=== PATIENT | female | born 1960 | race Caucasian/White ===

== ENCOUNTER 2018-04-18 07:42 | Day surgery (SDC) | payer OTHER ==
[2018-04-18 08:23] VITALS: BMI 36.6
[2018-04-18] MEDS ORDERED: Lactated Ringer's 1,000 ML IV ONE ×2 (10:25→11:00)
[2018-04-18] MEDS ORDERED: Propofol 10 mg/ml Inj (20 ML) ONE (11:01)
[2018-04-18] MEDS ORDERED: Lidocaine Hydrochloride 10 ML INJ ONE (11:02)
[2018-04-18] MEDS ORDERED: Albuterol HFA 90 mcg/actuation (8 g) ONE (11:02)
--- NOTE | 2018-04-18 11:04 | CP.SDSHP ---
Same Day Surgery H & P - History Proposed Procedure: EGD Pre-Op Diagnosis: SEE NOTES - Previous Medical/Surgical History Cardiac: Hypertension Pulmonary: Asthma Endocrine/Metabolic: Diabetes Misc: Other Pain: 4.Moderate Pain - Allergies Allergies: Allergies No Known Allergies Allergy (Verified 04/18/18 08:23) - Physical Exam General Appearance: N Vital Signs: Vital Signs 04/18/18 08:32 Temperature 97 F L Pulse Rate 76 Respiratory 18 Rate Blood Pressure 121/68 O2 Sat by Pulse 98 Oximetry Mental Status: Alert & Oriented x3 Neuro: WNL Heart: Other Lungs: Other GI: Other - {Optional Preform as Required} Breast: WNL Abdomen: Other Rectal: Other Integument: WNL : WNL Ortho: Other ENT: WNL - Impression Pt. Evaluated Today:Candidate for Anesthesia & Procedure: Yes - Date & Time Time: 11:03 Short Stay Discharge - Short Stay Discharge Admitting Diagnosis/Reason for Visit: MELENA Disposition: HOME/ ROUTINE
[2018-04-18] MEDS ORDERED: Belladonna-Phenobarbital PO ONE (11:30)
[2018-04-18] MEDS ORDERED: Lactated Ringer's 500 ML IV SCH (11:30)
[2018-04-18] MEDS ORDERED: Sucralfate 1 gm/10 ml Oral Susp UD PO ONE (11:40)
[2018-04-18 11:46] VITALS: TEMP 96.9
[2018-04-18 12:01] VITALS: PULSE 69
[2018-04-18 12:33] VITALS: BP 117/66; RESP 18; O2SAT 97
== END 2018-04-18 12:27 | disposition home or self-care (01) ==
LOC: C.ENDO 07:42
PROVIDERS: ATTEND Specialist
DX: K26.9 Duodenal ulcer, unspecified as acute or chronic, without hemorrhage or perforation (principal); K44.9 Diaphragmatic hernia without obstruction or gangrene; K29.70 Gastritis, unspecified, without bleeding; E11.9 Type 2 diabetes mellitus without complications; I10 Essential (primary) hypertension; J45.909 Unspecified asthma, uncomplicated
CPT/HCPCS: 43239; 82948; 88305; J2704; J7120

== ENCOUNTER 2018-04-20 08:43 | Day surgery (SDC) | payer OTHER ==
--- NOTE | 2018-04-20 11:02 | CP.SDSHP ---
Same Day Surgery H & P - History Proposed Procedure: COLONSCOPY Pre-Op Diagnosis: SEE REPORT - Previous Medical/Surgical History Cardiac: Hypertension Pulmonary: Asthma Endocrine/Metabolic: Diabetes, Other Misc: Other Pain: 4.Moderate Pain - Allergies Allergies: Allergies No Known Allergies Allergy (Verified 04/19/18 14:33) - Physical Exam General Appearance: N Vital Signs: Vital Signs 04/20/18 09:00 Temperature 97.4 F L Pulse Rate 79 Respiratory 19 Rate Blood Pressure 114/68 O2 Sat by Pulse 100 Oximetry Mental Status: Alert & Oriented x3 Neuro: WNL Heart: Other Lungs: Other GI: WNL - {Optional Preform as Required} Breast: WNL Abdomen: Other Rectal: Other Integument: WNL : WNL Ortho: WNL ENT: WNL - Impression Pt. Evaluated Today:Candidate for Anesthesia & Procedure: Yes - Date & Time Time: 11:02 Short Stay Discharge - Short Stay Discharge Admitting Diagnosis/Reason for Visit: HEMORRHAGE OF ANUS AND RECTUM Disposition: HOME/ ROUTINE
[2018-04-20] MEDS ORDERED: Lidocaine Hydrochloride 5 ML INJ ONE (11:06)
[2018-04-20] MEDS ORDERED: Propofol 10 mg/ml Inj (20 ML) ONE (11:06)
[2018-04-20] MEDS ORDERED: Lactated Ringer's 1,000 ML IV ONE (11:12)
[2018-04-20] MEDS: Belladonna-Phenobarbital PO ONE ×2 (12:15→13:15)
[2018-04-20] MEDS ORDERED: DiphenhydrAMINE 50 mg/ml Inj IVP STA (12:30)
[2018-04-20] MEDS ORDERED: DiphenhydrAMINE 50 mg/ml Inj ONE (12:38)
[2018-04-20 14:41] VITALS: TEMP 97.3
[2018-04-20 14:42] VITALS: O2SAT 99
[2018-04-20 14:46] VITALS: RESP 15
[2018-04-20 15:11] VITALS: BP 147/71; PULSE 66
== END 2018-04-20 13:25 | disposition home or self-care (01) ==
LOC: C.ENDO 08:43
PROVIDERS: ATTEND Specialist
DX: K62.5 Hemorrhage of anus and rectum (principal); Z12.11 Encounter for screening for malignant neoplasm of colon; K64.8 Other hemorrhoids
CPT/HCPCS: 45378; 82948; 88305; J1200; J2704; J7120